=== PATIENT | female | born 1960 | race Caucasian/White ===

== ENCOUNTER 2018-05-13 14:12 | Inpatient (IN) | payer OTHER ==
[~2018-05-13] VITALS: Ht 162.6 cm; Wt 52.9 kg
[2018-05-13] MEDS ORDERED: ALBUTEROL/IPRATROPIUM 2.5MG/0.5MG, 3 ML NPPB ONE (14:30)
[2018-05-13] MEDS ORDERED: SODIUM CHLORIDE FLUSH 10ML SYR IVF ONE (14:30)
[2018-05-13] MEDS ORDERED: ALBUTEROL/IPRATROPIUM 2.5MG/0.5MG, 3 ML ONE ×3 (14:37→21:08)
[2018-05-13 14:52] LABS: BASOPHILS # (AUTO) 0.02 x10^3/uL (0-0.1); BASOPHILS % (AUTO) 0 % (0-1); EOSINOPHILS % (AUTO) 0 % (1-7); LYMPHOCYTES # (AUTO) 1.39 x10^3/uL (1-3.4); LYMPHOCYTES % (AUTO) 14 % (22-44); MD NO; MEAN CORPUSCULAR HEMOGLOBIN 33.7 pg (27.0-34.8); MEAN CORPUSCULAR HGB CONC 32.9 g/dL (32.4-35.8); MEAN CORPUSCULAR VOLUME 102.5 fL (80-100); MONOCYTES # (AUTO) 0.27 x10^3/uL (0.2-0.8); MONOCYTES % (AUTO) 3 % (2-9); NEUTROPHILS # (AUTO) 8.17 x10^3/uL (1.8-6.8); NEUTROPHILS % (AUTO) 83 % (42-75); PLATELET COUNT 236 x10^3/uL (130-400); RED BLOOD COUNT 4.19 x10^6/uL (3.82-5.3); RED CELL DISTRIBUTION WIDTH 13.3 % (9.6-15.2)
[2018-05-13 14:59] LABS: ALANINE AMINOTRANSFERASE 14 U/L (12-78); ANION GAP 7 mmol/L (5-15); CALCIUM 8.9 mg/dL (8.5-10.1); CHLORIDE 107 mmol/L (98-107); CREATININE 0.76 mg/dL (0.55-1.02)
[2018-05-13 15:03] LABS: ALKALINE PHOSPHATASE 109 U/L (45-117); BILIRUBIN,TOTAL 0.7 mg/dL (0.2-1.0); TOTAL PROTEIN 7.6 g/dL (6.4-8.2)
--- NOTE | 2018-05-13 15:08 | NUR ---
CARE WAS ASSUMED. PT.'S REPEAT EKG WAS DONE. IV ACCESS ESTABLISHED. PT. DENIES C/O PAIN OR DISCOMFORT. PT.'S RA SATS ARE 82%. 02 IS ON BY SIMPLE MASK. PT. WAS SWITCHED TO A NASAL CANNULA AND IS UNABLE TO MAINTAIN HER OXYGEN LEVELS ABOVE 90 % ON HER NASAL CANNULA. PT. HAS THE CP MONITOR IN PLACE. VSS. PT. HAS INSP WHEEZING NOTED IN HER RIGHT MIDDLE LOBE. SIDERAILS ARE UP X 2 AND THE CALL LIGHT IS IN PLACE.
[2018-05-13] MEDS ORDERED: ASPIRIN 81 MG TABLET CHEW ONE (15:14)
--- NOTE | 2018-05-13 15:25 | NUR ---
DR. SMALLS TO THE BEDSIDE TO DISCUSS THE PLAN OF CARE. VSS. PT. REMAINS MONITORED. FRIENDS AT THE BEDSIDE.
[2018-05-13] MEDS ORDERED: CETI10CA PO (15:26)
[2018-05-13] MEDS ORDERED: ASPIRIN 81 MG TABLET CHEW PO ONE (15:30)
[2018-05-13] MEDS ORDERED: OMNIPAQUE 350 MG/ML, 100ML BOTTLE ONE (16:10)
--- NOTE | 2018-05-13 16:46 | NUR ---
PT. REMAINS MONITORED AND IS RESTING AT THIS TIME.
[2018-05-13] MEDS ORDERED: CEFTRIAXONE PMX 1GM/50ML 50 ML IV ONE (17:00)
--- NOTE | 2018-05-13 17:00 | NUR ---
PT. HAS NO BLOOD CULTURES ORDERED AT THIS TIME. IV ABX GIVEN ORDERED.
[2018-05-13] MEDS ORDERED: CEFTRIAXONE PMX 1GM/50ML 50 ML ONE (17:25)
--- NOTE | 2018-05-13 17:36 | NUR ---
PT.'S IV ABX ARE INFUSING. PT. REMAINS MONITORED. VSS.
[2018-05-13] MEDS ORDERED: GUAIFENESIN/DM 200-20MG, 10ML UDC PO PRN (18:30)
[2018-05-13] MEDS ORDERED: NITROGLYCERIN 0.4 MG BOTTLE (25 TABS) SL PRN (18:30)
[2018-05-13] MEDS ORDERED: ONDANSETRON ODT 4 MG PO PRN (18:30)
[2018-05-13] MEDS ORDERED: ACETAMINOPHEN 325 MG TABLET PO PRN (18:30)
[2018-05-13] MEDS ORDERED: DOCUSATE 100 MG CAPSULE PO PRN (18:30)
[2018-05-13] MEDS ORDERED: ONDANSETRON 2MG/ML, 2ML IVPush PRN (18:30)
[2018-05-13] MEDS ORDERED: BISACODYL 10 MG SUPP PR PRN (18:30)
[2018-05-13] MEDS ORDERED: LIDODERM 5% PATCH TD PRN (18:30)
[2018-05-13] MEDS ORDERED: hydrALAzine 20 MG/ML, 1ML IVPush PRN (18:30)
[2018-05-13] MEDS ORDERED: NITROGLYCERIN 0.4 MG/SPRAY SL PRN (18:30)
[2018-05-13] MEDS ORDERED: POLYETHYLENE GLYCOL 17 GM PACKET PO PRN (18:30)
[2018-05-13] MEDS ORDERED: CEFTRIAXONE PMX 1GM/50ML 50 ML IV SCH (19:00)
[2018-05-13] MEDS: CEFTRIAXONE PMX 1GM/50ML 50 ML IV SCH (19:00)
[2018-05-13] MEDS ORDERED: ALBU0.63 NEB (19:01)
[2018-05-13] MEDS ORDERED: FLUT1DIS IH (19:02)
--- NOTE | 2018-05-13 19:07 | NUR ---
TASK RN: PT OOB AND AMBULATE TO BATHROOM WITH PROTABLE 02, UPRIGHT STEADY GAIT. RTD TO ROOM W/O INCIDENT
--- NOTE | 2018-05-13 19:10 | NUR ---
PT SP02 FALLS TO 82% WITH THE ACTIVITY OF WALKING TO BATHROOM. RN UPDATED.
--- NOTE | 2018-05-13 19:14 | NUR ---
REPORT REC. PT RESTING QUIETLY IN BED, REMAINS ON OXYMASK, PT LUNGS VERY DIMINISHED BIBASILLAR, NO WHEEZING HEARD AT THIS TIME. PT ASSISTED TO BATHROOM, REMAINS ON MASK, SPO2 TO 82% WITH ACTIVITY, INCREASE WORK OF BREATHING, BACK TO BED AND SPO2 INCREASE TO 93%. ANTIBIOTICS INFUSING AND HEPARIN GIVEN.
[2018-05-13] MEDS ORDERED: HEPARIN 5,000 UNITS/ML, 1ML ONE (19:18)
[2018-05-13] MEDS: HEPARIN 5,000 UNITS/ML, 1ML SQ SCH (19:22)
[2018-05-13] MEDS: AZITHROMYCIN 500 MG in SODIUM CHLORIDE 0.9% 250 ML IV SCH (19:22)
[2018-05-13] MEDS ORDERED: NICOTINE 7 MG/24 HR PATCH.TD24 ONE (19:33)
--- NOTE | 2018-05-13 19:36 | NUR ---
NICOTENE PATCH PER ORDER, PT TALKING ON PHONE
[2018-05-13] MEDS ORDERED: methylPREDNISolone SOD SUCC 125 MG/2 ML ONE (19:47)
[2018-05-13] MEDS: methylPREDNISolone SOD SUCC 125 MG/2 ML IVPush SCH (19:49)
[2018-05-13 19:50] LABS: FREE T4 (FREE THYROXINE) 1.15 ng/dL (0.76-1.46)
[2018-05-13] MEDS: NICOTINE 7 MG/24 HR PATCH.TD24 TD SCH (20:00)
--- NOTE | 2018-05-13 20:01 | NUR ---
RSTING CALMLY, NO RESP DISTRESS AT REST.
[2018-05-13 20:11] LABS: FOLATE LEVEL 12.9 ng/mL (3.1-17.5); THYROID STIMULATING HORMONE 0.863 mIU/L (0.358-3.740)
--- NOTE | 2018-05-13 20:55 | NUR ---
RESTING MORE COMFORTABLY, FIREND AT BEDSIDE, LUNDS VERY DIMINISHED BASES, NO WHEEXING HEARD.
[2018-05-13] MEDS ORDERED: BUDESONIDE 0.5 MG/2 ML INHA ONE (21:08)
[2018-05-13] MEDS: BUDESONIDE 0.5 MG/2 ML INHA INH SCH (21:12)
[2018-05-13] MEDS: ALBUTEROL/IPRATROPIUM 2.5MG/0.5MG, 3 ML NPPB SCH ×3 (21:12→23:00)
[2018-05-13 22:25] VITALS: BP 118/68
[2018-05-13 23:34] LABS: RAPID INFLUENZA A Negative (Negative); RAPID INFLUENZA B Negative (Negative)
[2018-05-14 00:40] LABS: BASOPHILS # (AUTO) 0.03 x10^3/uL (0-0.1); BASOPHILS % (AUTO) 1 % (0-1); EOSINOPHILS % (AUTO) 0 % (1-7); LYMPHOCYTES # (AUTO) 0.89 x10^3/uL (1-3.4); LYMPHOCYTES % (AUTO) 16 % (22-44); MD NO; MEAN CORPUSCULAR HEMOGLOBIN 34.3 pg (27.0-34.8); MEAN CORPUSCULAR HGB CONC 33.6 g/dL (32.4-35.8); MEAN CORPUSCULAR VOLUME 102.2 fL (80-100); MEAN PLATELET VOLUME 9.2 fL (7.4-10.4); MONOCYTES % (AUTO) 2 % (2-9); NEUTROPHILS # (AUTO) 4.61 x10^3/uL (1.8-6.8); NEUTROPHILS % (AUTO) 82 % (42-75); PLATELET COUNT 205 x10^3/uL (130-400); RED BLOOD COUNT 3.83 x10^6/uL (3.82-5.3); RED CELL DISTRIBUTION WIDTH 13.2 % (9.6-15.2)
[2018-05-14 00:47] LABS: ANION GAP 9 mmol/L (5-15); CALCIUM 8.6 mg/dL (8.5-10.1); CHLORIDE 107 mmol/L (98-107); CREATININE 0.73 mg/dL (0.55-1.02)
[2018-05-14 00:53] LABS: TROPONIN I 0.079 ng/mL (0.000-0.045)
[2018-05-14 01:28] VITALS: BP 100/56
[2018-05-14] MEDS: methylPREDNISolone SOD SUCC 125 MG/2 ML IVPush SCH ×3 (04:08→20:20)
[2018-05-14 04:33] LABS: MICROSCOPIC NOT IND
[2018-05-14 04:44] LABS: CULTURE INDICATED? NO
[2018-05-14 04:46] LABS: AMPHETAMINE SCREEN, URINE Negative (Negative); BARBITURATE SCREEN, URINE Negative (Negative); BENZODIAZEPINE SCREEN, URINE Negative (Negative); CANNABINOID SCREEN, URINE Negative (Negative); COCAINE SCREEN, URINE Negative (Negative); METHADONE SCREEN, URINE Negative (Negative); OPIATE SCREEN, URINE Negative (Negative)
[2018-05-14] MEDS: ALBUTEROL/IPRATROPIUM 2.5MG/0.5MG, 3 ML NPPB SCH ×4 (07:00→20:25)
[2018-05-14] MEDS: BUDESONIDE 0.5 MG/2 ML INHA INH SCH ×2 (07:00→20:25)
[2018-05-14] MEDS: HEPARIN 5,000 UNITS/ML, 1ML SQ SCH ×2 (08:52→20:20)
[2018-05-14 08:53] VITALS: BP 120/75
[2018-05-14] MEDS ORDERED: REGADENOSON 0.4 MG/5 ML SYRINGE ONE (08:53)
[2018-05-14 14:42] VITALS: BP 97/73
[2018-05-14 18:47] VITALS: BP 116/74
[2018-05-14] MEDS: AZITHROMYCIN 500 MG in SODIUM CHLORIDE 0.9% 250 ML IV SCH (20:19)
[2018-05-15 00:25] VITALS: BP 103/66
[2018-05-15] MEDS: methylPREDNISolone SOD SUCC 125 MG/2 ML IVPush SCH ×3 (04:25→20:41)
[2018-05-15 04:55] LABS: HEMOGLOBIN A1C 5.6 % (4.2-6.3)
[2018-05-15 05:00] LABS: LDL/HDL RATIO 2.5 (0.5-3.0)
[2018-05-15 06:45] VITALS: BP 102/66
[2018-05-15] MEDS: BUDESONIDE 0.5 MG/2 ML INHA INH SCH ×2 (07:30→21:15)
[2018-05-15] MEDS: ALBUTEROL/IPRATROPIUM 2.5MG/0.5MG, 3 ML NPPB SCH ×3 (07:30→21:15)
[2018-05-15] MEDS: NICOTINE 7 MG/24 HR PATCH.TD24 TD SCH (08:02)
[2018-05-15] MEDS: HEPARIN 5,000 UNITS/ML, 1ML SQ SCH ×2 (08:03→20:42)
[2018-05-15 13:28] VITALS: BP 108/73
[2018-05-15] MEDS: CEFTRIAXONE PMX 1GM/50ML 50 ML IV SCH (17:24)
[2018-05-15 18:42] VITALS: BP 115/74
[2018-05-15] MEDS: AZITHROMYCIN 500 MG in SODIUM CHLORIDE 0.9% 250 ML IV SCH (20:41)
[2018-05-16 02:15] VITALS: BP 124/72
[2018-05-16] MEDS: methylPREDNISolone SOD SUCC 125 MG/2 ML IVPush SCH ×3 (04:01→21:28)
[2018-05-16 06:27] VITALS: BP 128/75
[2018-05-16] MEDS: BUDESONIDE 0.5 MG/2 ML INHA INH SCH ×2 (08:36→21:12)
[2018-05-16] MEDS: ALBUTEROL/IPRATROPIUM 2.5MG/0.5MG, 3 ML NPPB SCH ×3 (08:36→21:12)
[2018-05-16] MEDS: NICOTINE 7 MG/24 HR PATCH.TD24 TD SCH (08:48)
[2018-05-16] MEDS: HEPARIN 5,000 UNITS/ML, 1ML SQ SCH ×2 (08:49→21:28)
[2018-05-16 12:00] VITALS: BP 132/81
[2018-05-16] MEDS: CEFTRIAXONE PMX 1GM/50ML 50 ML IV SCH (18:19)
[2018-05-16 19:58] VITALS: BP 116/67
[2018-05-16] MEDS: AZITHROMYCIN 500 MG in SODIUM CHLORIDE 0.9% 250 ML IV SCH (21:28)
[2018-05-17 02:00] VITALS: BP 114/72
[2018-05-17] MEDS: methylPREDNISolone SOD SUCC 125 MG/2 ML IVPush SCH ×2 (04:08→11:20)
[2018-05-17 06:34] VITALS: BP 123/78
[2018-05-17] MEDS: BUDESONIDE 0.5 MG/2 ML INHA INH SCH (07:45)
[2018-05-17] MEDS: ALBUTEROL/IPRATROPIUM 2.5MG/0.5MG, 3 ML NPPB SCH ×2 (07:45→15:55)
[2018-05-17] MEDS: NICOTINE 7 MG/24 HR PATCH.TD24 TD SCH (11:20)
[2018-05-17] MEDS: HEPARIN 5,000 UNITS/ML, 1ML SQ SCH (11:20)
[2018-05-17] MEDS ORDERED: FUROSEMIDE 20 MG/2 ML IV ONE (13:30)
[2018-05-17] MEDS ORDERED: POTASSIUM CHLORIDE 20 MEQ TAB.ER.PRT PO ONE (13:30)
[2018-05-17 14:03] VITALS: BP 128/85
[2018-05-17] MEDS ORDERED: NICO-485 TD (15:07)
[2018-05-17] MEDS ORDERED: FLUT1DIS IH (15:07)
[2018-05-17] MEDS ORDERED: GUAI5SYR PO (15:07)
[2018-05-17] MEDS ORDERED: ALBU18HF INH (15:07)
[2018-05-17] MEDS ORDERED: METH4TAB2 PO (15:07)
[2018-05-17] MEDS ORDERED: ALBU0.63 NEB (15:07)
[2018-05-17] MEDS ORDERED: DOXY100T PO (15:07)
== END 2018-05-17 17:11 | disposition home or self-care (01) | DRG 193 ==
LOC: ED 16:16 → EDIP 16:38 → ICU 22:19 → DCLOUNGE 05-17 16:55
PROVIDERS: ADMIT Internal Medicine; ATTEND Internal Medicine
DX: J18.9 Pneumonia, unspecified organism (principal); J96.21 Acute and chronic respiratory failure with hypoxia; J44.0 Chronic obstructive pulmonary disease with (acute) lower respiratory infection; J44.1 Chronic obstructive pulmonary disease with (acute) exacerbation; D75.89 Other specified diseases of blood and blood-forming organs; E87.6 Hypokalemia; F17.210 Nicotine dependence, cigarettes, uncomplicated; K76.0 Fatty (change of) liver, not elsewhere classified; K76.89 Other specified diseases of liver; Z82.5 Family history of asthma and other chronic lower respiratory diseases
CPT/HCPCS: 36415; 36600; 84145; 87400; 87806; 99285; J7620; J7626; 71045; 71046; 71275; 78452; 80048; 80053; 80061; 80307; 81003; 82607; 82746; 82803; 83036; 83605; 83735; 84439; 84443; 84484; 85025; 87040; 87081; 93005; 93017; 93306; 94640; 96365; G0378; J0456; J0696; J1644; J2785; Q9967; A9502; C9898; G0475; J1940; J2930; J7050